=== PATIENT | female | born 1970 | race American Indian/Alaskan Native ===

== ENCOUNTER 2017-06-01 03:36 | Emergency (ER) | payer MEDICARE ==
[2017-06-01] MEDS ORDERED: TYLENOL ONE (03:57)
[2017-06-01] MEDS ORDERED: TYLENOL PO ONE (04:40)
[2017-06-01] MEDS ORDERED: MOTRIN PO ONE (09:26)
[2017-06-01 11:16] VITALS: BP 106/66
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
[2017-06-01 12:39] LABS: Basophils % (Auto) 0.4 % (0.0-1.8); Hematocrit 34.3 % (30.3-42.9); Hemoglobin 11.4 gm/dl (10.1-14.3); Mean Corpuscular HGB Conc 33 % (30-34); Mean Corpuscular Hemoglobin 31 pg (28-32); Mean Corpuscular Volume 94 fl (79-97); Platelet Count 305 K/mm3 (140-440); Red Blood Count 3.64 M/mm3 (3.65-5.03); Red Cell Distribution Width 13.5 % (13.2-15.2); White Blood Count 11.2 K/mm3 (4.5-11.0)
[2017-06-01 12:50] LABS: Anion Gap 13 mmol/L; BUN/Creatinine Ratio 23.33; Blood Urea Nitrogen 7 mg/dL (7-17); Calcium 8.8 mg/dL (8.4-10.2); Carbon Dioxide 35 mmol/L (22-30); Chloride 94.2 mmol/L (98-107); Glucose 94 mg/dL (65-100); Sodium 138 mmol/L (137-145)
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
== END 2017-06-01 14:33 | disposition home or self-care (01) ==
LOC: ED 03:36
DX: S13.4XXA Sprain of ligaments of cervical spine, initial encounter (principal); S16.1XXA Strain of muscle, fascia and tendon at neck level, initial encounter; Y04.8XXA Assault by other bodily force, initial encounter; Y93.89 Activity, other specified; Y99.8 Other external cause status; Y92.009 Unspecified place in unspecified non-institutional (private) residence as the place of occurrence of the external cause
CPT/HCPCS: 36415; 72125; 80048; 85025; 86140

== ENCOUNTER 2017-06-03 08:06 | Emergency (ER) | payer MEDICARE ==
[2017-06-03 08:28] VITALS: BP 127/63
[2017-06-03] MEDS ORDERED: TORADOL PO ONE (10:30)
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
== END 2017-06-03 11:05 | disposition home or self-care (01) ==
LOC: ED 08:06
DX: S16.1XXA Strain of muscle, fascia and tendon at neck level, initial encounter (principal); M62.838 Other muscle spasm; X58.XXXA Exposure to other specified factors, initial encounter; Y93.9 Activity, unspecified; Y92.9 Unspecified place or not applicable; Y99.9 Unspecified external cause status
CPT/HCPCS: 99282

== ENCOUNTER 2017-06-17 08:02 | Emergency (ER) | payer MEDICARE ==
[2017-06-17] MEDS ORDERED: MOTRIN PO ONE (08:52)
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
[2017-06-17 10:17] VITALS: BP 100/60
== END 2017-06-17 10:11 | disposition home or self-care (01) ==
LOC: ED 08:02
DX: S16.1XXD Strain of muscle, fascia and tendon at neck level, subsequent encounter (principal); M54.12 Radiculopathy, cervical region; F20.9 Schizophrenia, unspecified; Z87.891 Personal history of nicotine dependence
CPT/HCPCS: 99282

== ENCOUNTER 2017-06-24 10:51 | Emergency (ER) | payer MEDICARE ==
[2017-06-24 11:35] VITALS: BP 118/66
--- NOTE | 2017-06-24 13:09 | Emergency Department Report ---
ED Neck Pain/Injury HPI - General Chief Complaint: Extremity Problem,Nontraumatic Stated Complaint: NECK/SHOULDER PAIN Time Seen by Provider: 06/24/17 12:56 Mode of arrival: Ambulatory Limitations: No Limitations - History of Present Illness Initial Comments: 47-year-old female past medical history cervical radiculopathy, schizophrenia presents with complaint of acute on chronic right-sided neck pain radiating to shoulder. Denies any new trauma is awake alert and oriented 3 states that she has had intermittent pain in the right shoulder for about 2-3 days. States she lifted something heavy and strained her right shoulder. Denies any falls no direct trauma. Patient is adamant that Motrin and Robaxin help significantly with her pain as they have in the past and is requesting prescriptions for both. States she does not currently have a primary doctor. Onset/Timin -: days(s) Radiation: right shoulder Severity: moderate Severity scale (0 -10): 7 Quality: sharp Consistency: constant - Related Data Previous Rx's Medication Instructions Recorded Last Taken Type Ibuprofen [Motrin] 600 mg PO Q8H PRN #15 tablet 06/17/17 Unknown Rx methOCARBAMOL [Robaxin TAB] 500 mg PO Q6H PRN #15 tablet 06/17/17 Unknown Rx Ibuprofen [Motrin] 800 mg PO Q8HR PRN #25 tablet 06/24/17 Unknown Rx methOCARBAMOL [Robaxin TAB] 500 mg PO Q6H PRN #15 tablet 06/24/17 Unknown Rx Allergies Allergy/AdvReac Type Severity Reaction Status Date / Time No Known Allergies Allergy Verified 06/24/17 11:35 ED Review of Systems ROS: Stated complaint: NECK/SHOULDER PAIN Other details as noted in HPI Constitutional: denies: chills, fever Eyes: denies: eye pain, eye discharge, vision change ENT: denies: ear pain, throat pain Respiratory: denies: cough, shortness of breath, wheezing Cardiovascular: denies: chest pain, palpitations Endocrine: no symptoms reported Gastrointestinal: denies: abdominal pain, nausea, diarrhea Genitourinary: denies: urgency, dysuria, discharge Musculoskeletal: denies: back pain, joint swelling, arthralgia Skin: denies: rash, lesions Neurological: denies: headache, weakness, paresthesias Psychiatric: denies: anxiety, depression Hematological/Lymphatic: denies: easy bleeding, easy bruising ED Past Medical Hx - Past Medical History Previous Medical History?: Yes Hx Psychiatric Treatment: Yes (schizophrenia) - Surgical History Past Surgical History?: Yes Hx Cholecystectomy: Yes - Social History Smoking Status: Former Smoker Substance Use Type: None - Medications Home Medications: Home Medications Medication Instructions Recorded Confirmed Last Taken Type Ibuprofen [Motrin] 600 mg PO Q8H PRN #15 tablet 06/17/17 Unknown Rx methOCARBAMOL [Robaxin TAB] 500 mg PO Q6H PRN #15 tablet 06/17/17 Unknown Rx Ibuprofen [Motrin] 800 mg PO Q8HR PRN #25 tablet 06/24/17 Unknown Rx methOCARBAMOL [Robaxin TAB] 500 mg PO Q6H PRN #15 tablet 06/24/17 Unknown Rx ED Physical Exam - General Limitations: No Limitations General appearance: alert, in no apparent distress - Head Head exam: Present: atraumatic, normocephalic - Eye Eye exam: Present: normal appearance, PERRL, EOMI - ENT ENT exam: Present: mucous membranes moist - Neck Neck exam: Present: normal inspection, full ROM (neck flexion and extension intact) - Respiratory Respiratory exam: Present: normal lung sounds bilaterally. Absent: respiratory distress - Cardiovascular Cardiovascular Exam: Present: regular rate, normal rhythm. Absent: systolic murmur, diastolic murmur, rubs, gallop - GI/Abdominal GI/Abdominal exam: Present: soft, normal bowel sounds - Extremities Exam Extremities exam: Present: normal inspection - Expanded Upper Extremity Exam Right Shoulder Exam: Present: normal inspection, full ROM (shoulder internal and external rotation intact abduction and abduction intact) Upper Arm exam: Present: normal inspection, full ROM Elbow exam: Present: normal inspection, full ROM - Back Exam Back exam: Present: normal inspection - Neurological Exam Neurological exam: Present: alert, oriented X3 - Psychiatric Psychiatric exam: Present: normal affect, normal mood - Skin Skin exam: Present: warm, dry, intact, normal color. Absent: rash ED Course Vital Signs 06/24/17 11:29 Temperature 98.9 F Pulse Rate 89 Respiratory 16 Rate Blood Pressure 118/66 O2 Sat by Pulse 97 Oximetry ED Medical Decision Making - Medical Decision Making A/P: Chronic right shoulder pain, cervical radiculopathy 1-short course of Robaxin and Motrin, follow up with primary care and orthopedics 2-5 out of 5 strength right upper extremity, shoulder range of motion intact, right upper shoulder many neurovascularly intact on exam Critical care attestation.: If time is entered above; I have spent that time in minutes in the direct care of this critically ill patient, excluding procedure time. ED Disposition Clinical Impression: Chronic neck pain Disposition: TO HOME OR SELFCARE Is pt being admited?: No Does the pt Need Aspirin: No Condition: Stable Instructions: Cervical Radiculopathy (ED), Musculoskeletal Pain (ED) Prescriptions: Ibuprofen [Motrin] 800 mg PO Q8HR PRN #25 tablet PRN Reason: Pain methOCARBAMOL [Robaxin TAB] 500 mg PO Q6H PRN #15 tablet PRN Reason: Muscle Spasm Referrals: [facility] [Provider Group] - 3-5 Days [facility] [Outside] - 3-5 Days MARLYN CHAUDHARI MD [Staff Physician] - 3-5 Days [facility] [Provider Group] - 3-5 Days Forms: Work/School Release Form(ED) Time of Disposition: 13:04
== END 2017-06-24 13:15 | disposition home or self-care (01) ==
LOC: ED 10:51
DX: M54.2 Cervicalgia (principal); F20.9 Schizophrenia, unspecified; G89.29 Other chronic pain; Z87.891 Personal history of nicotine dependence
CPT/HCPCS: 99282

== ENCOUNTER 2017-07-07 10:45 | Emergency (ER) | payer MEDICARE ==
[2017-07-07 11:33] VITALS: BP 98/58
[2017-07-07] MEDS ORDERED: MOTRIN PO ONE (12:09)
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
== END 2017-07-07 12:40 | disposition home or self-care (01) ==
LOC: ED 10:45
DX: M50.30 Other cervical disc degeneration, unspecified cervical region (principal); F20.9 Schizophrenia, unspecified; F32.9 Major depressive disorder, single episode, unspecified; G89.29 Other chronic pain; Z87.891 Personal history of nicotine dependence
CPT/HCPCS: 99282

== ENCOUNTER 2018-02-22 03:29 | Emergency (ER) | payer MEDICARE ==
[2018-02-22 04:52] LABS: Basophils % (Auto) 0.4 % (0.0-1.8); Eosinophils # (Auto) 0.5 K/mm3 (0.0-0.4); Eosinophils % (Auto) 5.6 % (0.0-4.3); Hematocrit 40.8 % (30.3-42.9); Hemoglobin 13.9 gm/dl (10.1-14.3); Lymphocytes # (Auto) 3.2 K/mm3 (1.2-5.4); Lymphocytes % (Auto) 39.2 % (13.4-35.0); Mean Corpuscular HGB Conc 34 % (30-34); Mean Corpuscular Hemoglobin 32 pg (28-32); Mean Corpuscular Volume 94 fl (79-97); Monocytes # (Auto) 0.5 K/mm3 (0.0-0.8); Monocytes % (Auto) 6.5 % (0.0-7.3); Platelet Count 264 K/mm3 (140-440); Red Blood Count 4.33 M/mm3 (3.65-5.03); Red Cell Distribution Width 14.3 % (13.2-15.2)
[2018-02-22 05:42] LABS: Alanine Aminotransferase 12 units/L (7-56); Albumin 4.2 g/dL (3.9-5); BUN/Creatinine Ratio 25; Blood Urea Nitrogen 15 mg/dL (7-17); Calcium 9.1 mg/dL (8.4-10.2); Hemolysis Index 20
[2018-02-22 07:10] LABS: Bilirubin,Urine NEG (Negative); Blood,Urine NEG (Negative); Color,Urine Straw (Yellow); Protein,Urine <15 mg/dL mg/dL (Negative); RBC,Urine < 1.0 /HPF (0.0-6.0); Urobilinogen,Urine < 2.0 mg/dL (<2.0)
[2018-02-22 08:11] VITALS: BP 111/65
[2018-02-22 09:22] LABS: HCG Qualitative,Urine Negative (Negative)
--- NOTE | 2018-02-22 09:56 | Cat Scan Report ---
CT ABDOMEN PELVIS WITHOUT CONTRAST: HISTORY: Right abdominal pain, right flank pain. COMPARISON: none. TECHNIQUE: Helical CT in 1.25mm intervals without IV contrast. Sagittal and coronal reconstructions. FINDINGS: Lung bases: Normal. Liver: Normal size and attenuation. 1.8 cm right hepatic lobe cyst or hemangioma is noted. Biliary system: Cholecystectomy changes. No biliary dilatation. Pancreas: Normal. Spleen: Normal. Kidneys/ureters/bladder: Normal. Adrenal glands: Normal. Aorta: Normal. Intestines: Unremarkable given no oral contrast was administered.. Appendix: Normal. Pelvic viscera: Normal. Ascites: None. Adenopathy: None. Musculoskeletal: Mild thoracolumbar spondylosis. No evidence for fracture or suspicious bony lesion. Small umbilical hernia containing fat is noted. IMPRESSION: No acute process is identified in the abdomen or pelvis. No clear explanation for right abdominal or right flank pain. 1.8 cm liver cyst or hemangioma. Small umbilical hernia containing fat. Cholecystectomy.
--- NOTE | 2018-02-22 10:30 | Emergency Department Report ---
ED Abdominal Pain HPI - General Chief Complaint: Abdominal Pain Stated Complaint: RT FLANK PAIN Time Seen by Provider: 02/22/18 09:04 Source: patient Mode of arrival: Ambulatory Limitations: No Limitations - History of Present Illness Initial Comments: 48-year-old female with a past medical history schizophrenia, depression, previous cholecystectomy, and chronic neck pain consistent with complaints of right-sided abdominal and flank pain ongoing since August for worsening for the past one week. Patient is pain-free at this time stated she hasn't had pain in the last 4 hours. Usually pain is rated 7/10 intensity without exiting relieving factors. Denies nausea, vomiting, fever, hematuria, dysuria, melena, hematochezia. Severity scale (0 -10): 10 - Related Data Previous Rx's Medication Instructions Recorded Last Taken Type methOCARBAMOL [Robaxin TAB] 500 mg PO Q6H PRN #15 tablet 06/17/17 Unknown Rx Ibuprofen [Motrin] 800 mg PO Q8HR PRN #25 tablet 06/24/17 Unknown Rx methOCARBAMOL [Robaxin TAB] 500 mg PO Q6H PRN #15 tablet 06/24/17 Unknown Rx Cyclobenzaprine [Flexeril] 10 mg PO TID PRN #15 tablet 07/07/17 Unknown Rx Ibuprofen [Motrin 600 MG tab] 600 mg PO Q8H PRN #15 tablet 07/07/17 Unknown Rx Allergies Allergy/AdvReac Type Severity Reaction Status Date / Time No Known Allergies Allergy Verified 07/07/17 11:33 ED Review of Systems ROS: Stated complaint: RT FLANK PAIN Other details as noted in HPI Comment: All other systems reviewed and negative ED Past Medical Hx - Past Medical History Previous Medical History?: Yes Hx Psychiatric Treatment: Yes (schizophrenia , DEPRESSION) Additional medical history: chronic neck pain - Surgical History Past Surgical History?: Yes Hx Cholecystectomy: Yes Additional Surgical History: Chronic Neck Pain - Social History Smoking Status: Never Smoker Substance Use Type: None - Medications Home Medications: Home Medications Medication Instructions Recorded Confirmed Last Taken Type methOCARBAMOL [Robaxin TAB] 500 mg PO Q6H PRN #15 tablet 06/17/17 Unknown Rx Ibuprofen [Motrin] 800 mg PO Q8HR PRN #25 tablet 06/24/17 Unknown Rx methOCARBAMOL [Robaxin TAB] 500 mg PO Q6H PRN #15 tablet 06/24/17 Unknown Rx Cyclobenzaprine [Flexeril] 10 mg PO TID PRN #15 tablet 07/07/17 Unknown Rx Ibuprofen [Motrin 600 MG tab] 600 mg PO Q8H PRN #15 tablet 07/07/17 Unknown Rx ED Physical Exam - General Limitations: No Limitations - Other Other exam information: General: No limitations, patient is alert in no acute distress Head exam: Atraumatic, normocephalic Eyes exam: Normal appearance, pupils equal reactive to light, extraocular movements intact ENT: Moist mucous membrane, normal oropharynx Neck exam: Normal inspection, full range of motion, no meningismus nontender Respiratory exam: Clear to auscultation bilateral, no wheezes, rales, crackles Cardiovascular: Normal rate and rhythm, normal heart sounds Abdomen: Soft, nondistended, and nontender, with normal bowel sounds, no rebound, or guarding Extremity: Full range of motion normal inspection no deformity Back: Normal Inspection, full range of motion, no tenderness Neurologic: Alert, oriented x3, cranial nerves intact, no motor or sensory deficit Psychiatric: normal affect, normal mood Skin: Warm, dry, intact ED Course Vital Signs 02/22/18 02/22/18 02/22/18 03:57 07:51 08:10 Temperature 97.7 F 98.4 F 98.3 F Pulse Rate 80 104 H Respiratory 18 18 Rate Blood Pressure 124/76 121/62 Blood Pressure 111/65 [Left] O2 Sat by Pulse 95 97 Oximetry - Reevaluation(s) Reevaluation #1: 02/22/18 11:21 Patient tolerating by mouth intake and did not require pain medication in the ED ED Medical Decision Making - Lab Data Result diagrams: 02/22/18 04:11 02/22/18 04:11 Lab Results 02/22/18 02/22/18 02/22/18 Range/Units 04:11 04:11 06:46 WBC 8.3 (4.5-11.0) K/mm3 RBC 4.33 (3.65-5.03) M/mm3 Hgb 13.9 (10.1-14.3) gm/dl Hct 40.8 (30.3-42.9) % MCV 94 (79-97) fl MCH 32 (28-32) pg MCHC 34 (30-34) % RDW 14.3 (13.2-15.2) % Plt Count 264 (140-440) K/mm3 Lymph % (Auto) 39.2 H (13.4-35.0) % Cross % (Auto) 6.5 (0.0-7.3) % Eos % (Auto) 5.6 H (0.0-4.3) % Baso % (Auto) 0.4 (0.0-1.8) % Lymph # 3.2 (1.2-5.4) K/mm3 Cross # 0.5 (0.0-0.8) K/mm3 Eos # 0.5 H (0.0-0.4) K/mm3 Baso # 0.0 (0.0-0.1) K/mm3 Seg Neutrophils % 48.3 (40.0-70.0) % Seg Neutrophils # 4.0 (1.8-7.7) K/mm3 Sodium 140 (137-145) mmol/L Potassium 4.5 (3.6-5.0) mmol/L Chloride 94.9 L (98-107) mmol/L Carbon Dioxide 32 H (22-30) mmol/L Anion Gap 18 mmol/L BUN 15 (7-17) mg/dL Creatinine 0.6 L (0.7-1.2) mg/dL Estimated GFR > 60 ml/min BUN/Creatinine Ratio 25 % Glucose 120 H (65-100) mg/dL Calcium 9.1 (8.4-10.2) mg/dL Total Bilirubin 0.20 (0.1-1.2) mg/dL AST 17 (5-40) units/L ALT 12 (7-56) units/L Alkaline Phosphatase 56 (35-129) units/L Total Protein 7.1 (6.3-8.2) g/dL Albumin 4.2 (3.9-5) g/dL Albumin/Globulin Ratio 1.4 % Urine Color Straw (Yellow) Urine Turbidity Clear (Clear) Urine pH 6.0 (5.0-7.0) Ur Specific [place] 1.004 (1.003-1.030) Urine Protein <15 mg/dl (Negative) mg/dL Urine Glucose (UA) Neg (Negative) mg/dL Urine Ketones Neg (Negative) mg/dL Urine Blood Neg (Negative) Urine Nitrite Neg (Negative) Urine Bilirubin Neg (Negative) Urine Urobilinogen < 2.0 (<2.0) mg/dL Ur Leukocyte Esterase Neg (Negative) Urine WBC (Auto) 1.0 (0.0-6.0) /HPF Urine RBC (Auto) < 1.0 (0.0-6.0) /HPF Urine HCG, Qual (Negative) 02/22/18 Range/Units 06:49 WBC (4.5-11.0) K/mm3 RBC (3.65-5.03) M/mm3 Hgb (10.1-14.3) gm/dl Hct (30.3-42.9) % MCV (79-97) fl MCH (28-32) pg MCHC (30-34) % RDW (13.2-15.2) % Plt Count (140-440) K/mm3 Lymph % (Auto) (13.4-35.0) % Cross % (Auto) (0.0-7.3) % Eos % (Auto) (0.0-4.3) % Baso % (Auto) (0.0-1.8) % Lymph # (1.2-5.4) K/mm3 Cross # (0.0-0.8) K/mm3 Eos # (0.0-0.4) K/mm3 Baso # (0.0-0.1) K/mm3 Seg Neutrophils % (40.0-70.0) % Seg Neutrophils # (1.8-7.7) K/mm3 Sodium (137-145) mmol/L Potassium (3.6-5.0) mmol/L Chloride (98-107) mmol/L Carbon Dioxide (22-30) mmol/L Anion Gap mmol/L BUN (7-17) mg/dL Creatinine (0.7-1.2) mg/dL Estimated GFR ml/min BUN/Creatinine Ratio % Glucose (65-100) mg/dL Calcium (8.4-10.2) mg/dL Total Bilirubin (0.1-1.2) mg/dL AST (5-40) units/L ALT (7-56) units/L Alkaline Phosphatase (35-129) units/L Total Protein (6.3-8.2) g/dL Albumin (3.9-5) g/dL Albumin/Globulin Ratio % Urine Color (Yellow) Urine Turbidity (Clear) Urine pH (5.0-7.0) Ur Specific Tas[place] (1.003-1.030) Urine Protein (Negative) mg/dL Urine Glucose (UA) (Negative) mg/dL Urine Ketones (Negative) mg/dL Urine Blood (Negative) Urine Nitrite (Negative) Urine Bilirubin (Negative) Urine Urobilinogen (<2.0) mg/dL Ur Leukocyte Esterase (Negative) Urine WBC (Auto) (0.0-6.0) /HPF Urine RBC (Auto) (0.0-6.0) /HPF Urine HCG, Qual Negative (Negative) - Radiology Data Radiology results: report reviewed ct a/p noncontrast IMPRESSION: No acute process is identified in the abdomen or pelvis. No clear explanation for right abdominal or right flank pain. 1.8 cm liver cyst or hemangioma. Small umbilical hernia containing fat. Cholecystectomy. - Medical Decision Making Ongoing right-sided abdominal pain. No acute laboratory, urine, or CT findings. Discharged to follow up with PMD - Differential Diagnosis appendicitis, diverticulitis, UTI, renal colic, MSK pain Critical Care Time: No Critical care attestation.: If time is entered above; I have spent that time in minutes in the direct care of this critically ill patient, excluding procedure time. ED Disposition Clinical Impression: Right sided abdominal pain Disposition: DC-01 TO HOME OR SELFCARE Is pt being admited?: No Does the pt Need Aspirin: No Condition: Stable Instructions: Abdominal Pain (ED) Additional Instructions: Take Tylenol or Motrin as needed for pain. Follow-up with your doctor. Return if symptoms worsen as indicated by your discharge instructions. Referrals: MICHOACANO BARRON MD [Primary Care Provider] - 3-5 Days Time of Disposition: 11:21
== END 2018-02-22 11:54 | disposition home or self-care (01) ==
LOC: ED 03:29
DX: R10.30 Lower abdominal pain, unspecified (principal); F20.9 Schizophrenia, unspecified
CPT/HCPCS: 36415; 74176; 80053; 81001; 81025; 85025

== ENCOUNTER 2019-10-22 11:55 | Emergency (ER) | payer MEDICARE ==
--- NOTE | 2019-10-22 12:41 | Event Note ---
ED Screening Note Date of service: 10/22/19 Time: 12:37 ED Screening Note: 49 y o female presents to ED not all there stating she is here for a vaginal and anal implant when asked patient when asked her hx she states she takes : depakote, Giodon, fluoxetine doesnt want to state what she is taking it for. states she has all the time in the world, talking in circles getting upset in traige stating she needs help This initial assessment/diagnostic orders/clinical plan/treatment(s) is/are subj ect to change based on patients health status, clinical progression and re- assessment by fellow clinical providers in the ED. Further treatment and workup at subsequent clinical providers discretion. Patient/guardian urged not to elope from the ED as their condition may be serious if not clinically assessed and managed. Initial orders include: MH eval labs, ua main eval
[2019-10-22 13:22] LABS: Amphetamine Screen,Urine PRESUMPTIVE NEGATIVE; Benzodiazepines Screen,Urine PRESUMPTIVE NEGATIVE; Cannabinoid Screen,Urine PRESUMPTIVE NEGATIVE; Cocaine Screen,Urine PRESUMPTIVE NEGATIVE; Methadone Screen,Urine PRESUMPTIVE NEGATIVE; Opiate Screen,Urine PRESUMPTIVE NEGATIVE
[2019-10-22 13:23] LABS: Bilirubin,Urine NEG (Negative); Blood,Urine LG (Negative); Color,Urine Yellow (Yellow); Mucus,Urine FEW /HPF; Protein,Urine <15 mg/dL mg/dL (Negative)
[2019-10-22 13:26] LABS: HCG Qualitative,Urine Negative (Negative)
[2019-10-22 13:41] LABS: RBC,Urine > 182.0 /HPF (0.0-6.0)
[2019-10-22 14:02] LABS: Basophils # (Auto) 0.1 K/mm3 (0.0-0.1); Basophils % (Auto) 0.7 % (0.0-1.8); Eosinophils # (Auto) 0.2 K/mm3 (0.0-0.4); Eosinophils % (Auto) 2.7 % (0.0-4.3); Hematocrit 39.6 % (30.3-42.9); Hemoglobin 13.3 gm/dl (10.1-14.3); Lymphocytes # (Auto) 2.8 K/mm3 (1.2-5.4); Lymphocytes % (Auto) 35.7 % (13.4-35.0); Mean Corpuscular HGB Conc 34 % (30-34); Mean Corpuscular Volume 94 fl (79-97); Monocytes # (Auto) 0.6 K/mm3 (0.0-0.8); Monocytes % (Auto) 8.3 % (0.0-7.3); Platelet Count 207 K/mm3 (140-440); Red Blood Count 4.23 M/mm3 (3.65-5.03); Red Cell Distribution Width 13.7 % (13.2-15.2)
[2019-10-22 14:22] LABS: BUN/Creatinine Ratio 13; Blood Urea Nitrogen 10 mg/dL (7-17); Calcium 9.2 mg/dL (8.4-10.2); Hemolysis Index 16
[2019-10-22 18:34] VITALS: BP 115/72
--- NOTE | 2019-10-22 22:20 | Emergency Department Report ---
ED General Adult HPI - General Chief complaint: Psych Stated complaint: UROGENITAL Time Seen by Provider: 10/22/19 22:08 Source: patient Mode of arrival: Ambulatory Limitations: No Limitations - History of Present Illness Initial comments: 49-year-old female with a history of schizophrenia presents with the complaint that she wants a anal and vaginal implant. Patient states that she is a desire to have a anal and vaginal implant most presented to the nearest hospital. Patient denies any auditory hallucinations. Patient has no suicidal or homicidal ideation. Patient states that she has a psychiatrist to follow with her states that she is compliant with her medications. Patient denies any abdominal pain or vaginal bleeding current time. Patient denies any rectal bleeding. Severity scale (0 -10): 0 - Related Data Previous Rx's Medication Instructions Recorded Last Taken Type methOCARBAMOL [Robaxin TAB] 500 mg PO Q6H PRN #15 tablet 06/17/17 Unknown Rx Ibuprofen [Motrin] 800 mg PO Q8HR PRN #25 tablet 06/24/17 Unknown Rx methOCARBAMOL [Robaxin TAB] 500 mg PO Q6H PRN #15 tablet 06/24/17 Unknown Rx Cyclobenzaprine [Flexeril] 10 mg PO TID PRN #15 tablet 07/07/17 Unknown Rx Ibuprofen [Motrin 600 MG tab] 600 mg PO Q8H PRN #15 tablet 07/07/17 Unknown Rx Allergies Allergy/AdvReac Type Severity Reaction Status Date / Time No Known Allergies Allergy Verified 10/22/19 12:35 ED Review of Systems ROS: Stated complaint: UROGENITAL Other details as noted in HPI Constitutional: denies: chills, fever Eyes: denies: eye pain, eye discharge, vision change ENT: denies: ear pain, throat pain Respiratory: denies: cough, shortness of breath, wheezing Cardiovascular: denies: chest pain, palpitations Endocrine: no symptoms reported Gastrointestinal: denies: abdominal pain, nausea, diarrhea Genitourinary: denies: urgency, dysuria, discharge Musculoskeletal: denies: back pain, joint swelling, arthralgia Skin: denies: rash, lesions Neurological: denies: headache, weakness, paresthesias Psychiatric: other (delusions) Hematological/Lymphatic: denies: easy bleeding, easy bruising ED Past Medical Hx - Past Medical History Previous Medical History?: Yes Hx Psychiatric Treatment: Yes (schizophrenia , DEPRESSION) Additional medical history: chronic neck pain - Surgical History Past Surgical History?: Yes Hx Cholecystectomy: Yes Additional Surgical History: Chronic Neck Pain - Social History Smoking Status: Never Smoker - Medications Home Medications: Home Medications Medication Instructions Recorded Confirmed Last Taken Type methOCARBAMOL [Robaxin TAB] 500 mg PO Q6H PRN #15 tablet 06/17/17 Unknown Rx Ibuprofen [Motrin] 800 mg PO Q8HR PRN #25 tablet 06/24/17 Unknown Rx methOCARBAMOL [Robaxin TAB] 500 mg PO Q6H PRN #15 tablet 06/24/17 Unknown Rx Cyclobenzaprine [Flexeril] 10 mg PO TID PRN #15 tablet 07/07/17 Unknown Rx Ibuprofen [Motrin 600 MG tab] 600 mg PO Q8H PRN #15 tablet 07/07/17 Unknown Rx ED Physical Exam - General Limitations: No Limitations General appearance: alert, in no apparent distress - Head Head exam: Present: atraumatic, normocephalic - Eye Eye exam: Present: normal appearance - ENT ENT exam: Present: mucous membranes moist - Neck Neck exam: Present: normal inspection - Respiratory Respiratory exam: Present: normal lung sounds bilaterally. Absent: respiratory distress - Cardiovascular Cardiovascular Exam: Present: regular rate, normal rhythm. Absent: systolic murmur, diastolic murmur, rubs, gallop - GI/Abdominal GI/Abdominal exam: Present: soft, normal bowel sounds - Extremities Exam Extremities exam: Present: normal inspection - Back Exam Back exam: Present: normal inspection - Neurological Exam Neurological exam: Present: alert, oriented X3, CN II-XII intact. Absent: motor sensory deficit, reflexes normal - Psychiatric Psychiatric exam: Absent: homicidal ideation, suicidal ideation - Skin Skin exam: Present: warm, dry, intact, normal color. Absent: rash ED Course Vital Signs 10/22/19 10/22/19 12:35 18:33 Temperature 98.5 F Pulse Rate 67 58 L Respiratory 20 16 Rate Blood Pressure 109/55 115/72 [Right] O2 Sat by Pulse 96 100 Oximetry ED Medical Decision Making - Lab Data Result diagrams: 10/22/19 13:37 10/22/19 13:37 - Medical Decision Making Patient has no SI or HI or auditory hallucinations. Patient be discharged to follow up with psychiatry as an outpatient. - Differential Diagnosis acute psychosis; Polysubstance abuse; anemia; dehydration Critical care attestation.: If time is entered above; I have spent that time in minutes in the direct care of this critically ill patient, excluding procedure time. ED Disposition Clinical Impression: Schizophrenia Disposition: DC-01 TO HOME OR SELFCARE Is pt being admited?: No Does the pt Need Aspirin: No Condition: Stable Instructions: Schizophrenia (ED) Referrals: OLAMIDE GREGORY MD [Staff Physician] - 3-5 Days PRIMARY CARE, [Primary Care Provider] - 3-5 Days Time of Disposition: 22:52 Print Language: SINHALA
== END 2019-10-23 00:20 | disposition home or self-care (01) ==
LOC: ED 11:55
DX: F20.9 Schizophrenia, unspecified (principal); F32.9 Major depressive disorder, single episode, unspecified; Z90.49 Acquired absence of other specified parts of digestive tract; Z79.899 Other long term (current) drug therapy
CPT/HCPCS: 36415; 80048; 80307; 80320; 81001; 81025; 85025; G0480

== ENCOUNTER 2020-03-30 00:32 | Observation (INO) | payer MEDICARE ==
[2020-03-30] MEDS ORDERED: ASPIRIN 325 MG TAB PO ONE (01:12)
[2020-03-30 01:37] LABS: Basophils # (Auto) 0.1 K/mm3 (0.0-0.1); Basophils % (Auto) 0.8 % (0.0-1.8); Eosinophils # (Auto) 0.2 K/mm3 (0.0-0.4); Eosinophils % (Auto) 2.4 % (0.0-4.3); Hematocrit 39.8 % (30.3-42.9); Hemoglobin 13.6 gm/dl (10.1-14.3); Lymphocytes % (Auto) 45.6 % (13.4-35.0); Mean Corpuscular HGB Conc 34 % (30-34); Mean Corpuscular Volume 93 fl (79-97); Monocytes # (Auto) 0.6 K/mm3 (0.0-0.8); Monocytes % (Auto) 7.3 % (0.0-7.3); Platelet Count 209 K/mm3 (140-440); Red Blood Count 4.27 M/mm3 (3.65-5.03); Red Cell Distribution Width 13.5 % (13.2-15.2)
[2020-03-30 01:49] LABS: BUN/Creatinine Ratio 18; Blood Urea Nitrogen 11 mg/dL (7-17); Calcium 9.4 mg/dL (8.4-10.2); Hemolysis Index 18
--- NOTE | 2020-03-30 02:28 | XRay Report ---
CHEST 1 VIEW, 03/30/2020 2:14 AM CLINICAL INFORMATION/INDICATION: Chest pain COMPARISON: None FINDINGS: SUPPORT DEVICES: None. HEART: The cardiac silhouette is normal in size. LUNGS/PLEURA: The lungs are clear of focal airspace disease or significant pleural effusion. ADDITIONAL FINDINGS: No additional acute findings. IMPRESSION: 1. No evidence of acute cardiopulmonary process. Signer Name: Lalitha Mckeon MD Signed: 03/30/2020 2:23 AM Workstation Name: [email or web address]
[2020-03-30] MEDS ORDERED: NITROGLYCERIN 2% OINT 1 GM TP ONE (02:30)
[2020-03-30] MEDS ORDERED: ONDANSETRON 4 MG/2 ML INJ IV ONE (02:30)
[2020-03-30] MEDS ORDERED: fentaNYL 100 MCG/2 ML INJ IV ONE (02:30)
--- NOTE | 2020-03-30 02:30 | Emergency Department Report ---
HPI - General Chief Complaint: Chest Pain PUI?: No Time Seen by Provider: 03/30/20 02:21 - HPI HPI: Room 38 The patient is a 50-year-old female present with a chief complaint of chest pain. Patient states for the past 3 hours she has had intermittent substernal chest pressure and back pain. Patient gives her pain a score of 3/10. Patient denies shortness of breath, nausea/vomiting or diaphoresis with her pain. Patient states she is never had a stress test or cardiac catheterization. ED Past Medical Hx - Past Medical History Previous Medical History?: Yes Hx Psychiatric Treatment: Yes (schizophrenia , DEPRESSION) Additional medical history: chronic neck pain - Surgical History Past Surgical History?: Yes Hx Cholecystectomy: Yes Additional Surgical History: Chronic Neck Pain - Family History Family history: no significant - Social History Smoking Status: Former Smoker (None since 2018) Substance Use Type: None (Denies illicit drug use) - Medications Home Medications: Home Medications Medication Instructions Recorded Confirmed Last Taken Type methOCARBAMOL [Robaxin TAB] 500 mg PO Q6H PRN #15 tablet 06/17/17 Unknown Rx Ibuprofen [Motrin] 800 mg PO Q8HR PRN #25 tablet 06/24/17 Unknown Rx methOCARBAMOL [Robaxin TAB] 500 mg PO Q6H PRN #15 tablet 06/24/17 Unknown Rx Cyclobenzaprine [Flexeril] 10 mg PO TID PRN #15 tablet 07/07/17 Unknown Rx Ibuprofen [Motrin 600 MG tab] 600 mg PO Q8H PRN #15 tablet 07/07/17 Unknown Rx ED Review of Systems ROS: Stated complaint: CP/NECK AND BACK PAIN Other details as noted in HPI Constitutional: denies: diaphoresis Eyes: denies: eye pain ENT: denies: throat pain Respiratory: denies: shortness of breath Cardiovascular: chest pain Endocrine: no symptoms reported Gastrointestinal: denies: nausea, vomiting Genitourinary: denies: dysuria Musculoskeletal: denies: back pain Neurological: denies: headache Physical Exam - Physical Exam Vital Signs: Vital Signs 03/30/20 01:02 Temperature 99.1 F Pulse Rate 58 L Respiratory 18 Rate Blood Pressure 114/56 O2 Sat by Pulse 98 Oximetry Physical Exam: GENERAL: The patient is well-developed well-nourished female lying on stretcher not appearing to be in acute distress. [] HEENT: Normocephalic. Atraumatic. Extraocular motions are intact. Patient has moist mucous membranes. NECK: Supple. Trachea midline CHEST/LUNGS: Clear to auscultation. There is no respiratory distress noted. HEART/CARDIOVASCULAR: Regular. There is no tachycardia. There is no gallop rub or murmur. ABDOMEN: Abdomen is soft, nontender. Patient has normal bowel sounds. There is no abdominal distention. SKIN: There is no rash. There is no edema. There is no diaphoresis. NEURO: The patient is awake, alert, and oriented. The patient is cooperative. The patient has normal speech MUSCULOSKELETAL: There is no evidence of acute injury. ED Course Vital Signs 03/30/20 01:02 Temperature 99.1 F Pulse Rate 58 L Respiratory 18 Rate Blood Pressure 114/56 O2 Sat by Pulse 98 Oximetry ED Medical Decision Making - Lab Data Result diagrams: 03/30/20 01:21 03/30/20 01:21 Laboratory Tests 03/30/20 03/30/20 03/30/20 01:21 01:21 01:21 WBC 8.7 RBC 4.27 Hgb 13.6 Hct 39.8 MCV 93 MCH 32 MCHC 34 RDW 13.5 Plt Count 209 Lymph % (Auto) 45.6 H Banks % (Auto) 7.3 Eos % (Auto) 2.4 Baso % (Auto) 0.8 Lymph # 4.0 Banks # 0.6 Eos # 0.2 Baso # 0.1 Seg Neutrophils % 43.9 Seg Neutrophils # 3.8 Sodium 141 Potassium 3.7 Chloride 98.1 Carbon Dioxide 31 H Anion Gap 16 BUN 11 Creatinine 0.6 L Estimated GFR > 60 BUN/Creatinine Ratio 18 Glucose 116 H Calcium 9.4 Troponin T < 0.010 HCG, Qual Negative - EKG Data -: EKG Interpreted by Me EKG shows normal: sinus rhythm Rate: normal - EKG Data When compared to previous EKG there are: previous EKG unavailable Interpretation: other (No ischemic changes seen) - Radiology Data Radiology results: image reviewed (Chest x-ray) interpreted by me: Chest x-ray-no focal infiltrates, no pneumothorax - Differential Diagnosis ACS, pericarditis, GERD Critical care attestation.: If time is entered above; I have spent that time in minutes in the direct care of this critically ill patient, excluding procedure time. ED Disposition Clinical Impression: Chest pain Disposition: DC-09 OP ADMIT IP TO THIS HOSP Is pt being admited?: Yes Does the pt Need Aspirin: Yes Condition: Fair Instructions: Chest Pain (ED) Referrals: PRIMARY CARE,MD [Primary Care Provider] - 3-5 Days Time of Disposition: 02:30 (Hospitalist paged (Dr. Josselyn Enrique))
[2020-03-30] MEDS ORDERED: ONDANSETRON 4 MG/2 ML INJ IV PRN (03:47)
[2020-03-30] MEDS ORDERED: ACETAMINOPHEN 325 MG TAB PO PRN (03:47)
[2020-03-30] MEDS ORDERED: MORPHINE 2 MG/1 ML INJ IV PRN (03:47)
--- NOTE | 2020-03-30 03:47 | History and Physical Report ---
History of Present Illness History of present illness: 50-year-old woman with a history of schizophrenia,depression chronic neck pain comes emergency room for evaluation. Pain is in the epigastric area which she describes as a sharp pain, intermittent every 3 minutes, intensity 5/10, no radiation, cannot identify exacerbating factors. Denies any nausea vomiting, shortness of breath, diaphoresis, palpitation. Patient will be admitted for est pain evaluation Review Of Systems: Constitutional: no weight loss, fever, chills Ears, eyes, nose, mouth and throat: no nasal congestion, no nasal discharge, no sinus pressure, blurry vision, diplopia Neck: No neck pain or rigidity. Cardiovascular: No palpitations, chest pain Respiratory: No shortness of breath, cough Gastrointestinal: No hematochezia Genitourinary : no dysuria, frequency Musculoskeletal: no muscle ache , joint pain Integumentary: no rash, no pruritis Neurological: no parathesias, focal weakness Endocrine: no cold or heat intolerance, no polyuria or polydipsia Hematologic/Lymphatic: no easy bruising, no easy bleeding, no gland swelling Allergic/Immunologic: no urticaria, no angioedema. PAST MEDICAL HISTORY: schizophrenia,depression chronic neck pain PAST SURGICAL HISTORY: Cholecystectomy, right foot SOCIAL HISTORY: Denies alcohol, tobacco, drugs FAMILY HISTORY: Hypertension Medications and Allergies Allergies Allergy/AdvReac Type Severity Reaction Status Date / Time No Known Allergies Allergy Verified 10/22/19 12:35 Home Medications Medication Instructions Recorded Confirmed Last Taken Type methOCARBAMOL [Robaxin TAB] 500 mg PO Q6H PRN #15 tablet 06/17/17 Unknown Rx Ibuprofen [Motrin] 800 mg PO Q8HR PRN #25 tablet 06/24/17 Unknown Rx methOCARBAMOL [Robaxin TAB] 500 mg PO Q6H PRN #15 tablet 06/24/17 Unknown Rx Cyclobenzaprine [Flexeril] 10 mg PO TID PRN #15 tablet 07/07/17 Unknown Rx Ibuprofen [Motrin 600 MG tab] 600 mg PO Q8H PRN #15 tablet 07/07/17 Unknown Rx Exam - Physical Exam Narrative exam: Gen. appearance: Patient lying in bed, no apparent distress HEENT: Normocephalic, atraumatic, pupils equally round and reactive to light, extraocular movement intact, and no sclericterus,. No JVD or thyromegaly or nodule,neck supple, no carotid bruit ,mucous membranes moist, no exudate or erythema Heart: S1, S2, regular rate and rhythm Lungs: Clear bilaterally, breathing comfortable Abdomen: Positive bowel sounds, nontender, nondistended, no organomegaly Extremity: no edema, cyanosis, clubbing Skin: No rash, nodules, warm, dry Neuro: Cranial nerves II to XII intact speech is fluent, moves extremities, sensory intact - Constitutional Vitals: Temp Pulse Resp BP Pulse Ox 99.1 F 65 18 114/60 99 03/30/20 01:02 03/30/20 03:23 03/30/20 03:23 03/30/20 03:23 03/30/20 03:23 HEART Score - HEART Score Troponin: Troponin T < 0.010 ng/mL (0.00-0.029) 03/30/20 01:21 Results - Labs CBC & Chem 7: 03/30/20 01:21 03/30/20 01:21 Labs: Abnormal lab results 03/30/20 03/30/20 Range/Units 01:21 01:21 Lymph % (Auto) 45.6 H (13.4-35.0) % Carbon Dioxide 31 H (22-30) mmol/L Creatinine 0.6 L (0.7-1.2) mg/dL Glucose 116 H (65-100) mg/dL - Imaging and Cardiology EKG: image reviewed Chest x-ray: report reviewed Assessment and Plan Assessment Chest pain Check cardiac enzymes, consult cardiology No stress test available today IV morphine, aspirin, DVT prophylaxis
--- NOTE | 2020-03-30 07:43 | Event Note ---
Date: 03/30/20 50-year-old female with a history of schizophrenia and depression and chronic neck pain presents with a chief complaint of sharp epigastric pain nonradiating not associated nausea vomiting no diaphoresis nonexertional admitted for chest pain evaluation for myocardial infarction. Initial cardiac enzymes unremarkable EKG unremarkable. Patient here for stress test echocardiogram further evaluation.
[2020-03-30] MEDS ORDERED: ENOXAPARIN 30 MG/0.3 ML INJ SUB-Q SCH (10:00)
--- NOTE | 2020-03-30 10:39 | Consultation ---
REFERRING PHYSICIAN: Dr. Kyle Arteaga. REASON FOR CONSULTATION: Advice and opinion regarding chest pain. HISTORY OF PRESENT ILLNESS: The patient is a 50-year-old female with history of schizophrenia, depression, chronic neck pain, who presents to Emergency Room with epigastric pain and chest pain on and off. She denies any syncope or presyncope. No diaphoresis, no nausea or vomiting. She states that she is seen on telemetry. States that she is feeling better, still has occasional chest pain. No family history of premature heart disease. She states she is a lifetime nonsmoker and nondrinker. No illicit drug use. Feeling better now. No family history of premature heart disease. MEDICATIONS: Inpatient and outpatient medications reviewed. ALLERGIES: No known drug, food, or environmental allergies. PHYSICAL EXAMINATION: VITAL SIGNS: Blood pressure is 114/60. She is afebrile. Tele reveals sinus rhythm in the 60s. No dysrhythmias or pauses. HEENT: Sclerae are anicteric. NECK: Supple, no masses, no JVD. CHEST: Clear to auscultation bilaterally. Good air movement. CARDIOVASCULAR: Regular rhythm, S1, S2. ABDOMEN: Soft, nontender, nondistended. Normoactive bowel sounds in 4 quadrants. No mass or bruits. EXTREMITIES: No cyanosis, clubbing, edema. Good peripheral pulses. SKIN: Warm, dry and intact. No rashes. LABORATORY DATA: EKG is nonacute. Cardiac enzymes negative x 2. CBC and BMP are otherwise unremarkable. Chest x-ray in the Emergency Room revealed no acute cardiopulmonary process. ASSESSMENT: In summary, the patient is a 50-year-old female: 1. Chest pain with typical and atypical features. Cardiac enzymes negative x 2. EKG is nonacute. 2. Depression. 3. Schizophrenia. PLAN: At this point, we will initiate cardiac workup with stress test, echocardiogram; however, further plan contingent on these results. Primary secondary prevention measures discussed. Thank you for this consultation. I will follow along with you. JOB# [id number] SBM/NTS
[2020-03-30] MEDS: ENOXAPARIN 40 MG/0.4 ML INJ SUB-Q SCH (11:16)
[2020-03-30] MEDS: ASPIRIN 81 MG TAB CHEW PO SCH (11:17)
[2020-03-31] MEDS ORDERED: REGADENOSON 0.4 MG/5 ML INJ IV ONE ×2 (08:06→08:15)
[2020-03-31] MEDS: ASPIRIN 81 MG TAB CHEW PO SCH (10:34)
[2020-03-31] MEDS: ENOXAPARIN 40 MG/0.4 ML INJ SUB-Q SCH (10:34)
--- NOTE | 2020-03-31 10:46 | Treadmill Report ---
NUCLEAR PERFUSION SCAN REFERRING PHYSICIAN: Kyle Arteaga MD PROTOCOL: The patient was brought to the stress lab in a postoperative state, given 10 mCi of technetium 99m at rest. The patient underwent rest imaging. The patient underwent Lexiscan stress test. At peak stress, patient was given 26 mCi of technetium 99m. Shortly thereafter, the patient underwent stress imaging. Raw imaging reveals mild GI artifact. No significant motion artifact. SPECT images examined carefully horizontal long axis, vertical long axis, short axis views. There is normal mitral uptake of radioisotope in all reported segments. No evidence of significant fixed or reversible perfusion defects suggestive of prior infarction or ischemia. Gated wall motion reveals normal systolic thickening, calculated ejection fraction of 57%, no TID. CONCLUSIONS: 1. Normal myocardial perfusion scan without evidence of active ischemia or prior infarction. 2. Normal left ventricular systolic performance without evidence of transient ischemic dilatation or stress-induced segmental wall motion abnormalities. JOB# [id number] SBM/NTS
--- NOTE | 2020-03-31 11:44 | Progress Note ---
Assessment and Plan clinically stable no further sxs stress thallium/tte/tele unremarkable aggressive primary and secondary prevention measures d/w pt - Patient Problems (1) Chest pain Current Visit: Yes Status: Acute Subjective Date of service: 03/31/20 Interval history: no cp or any sxs overnight Objective Vital Signs Temp Pulse Resp BP Pulse Ox 03/31/20 09:37 118/46 03/31/20 09:35 113/48 03/31/20 09:34 106/57 03/31/20 09:32 102/51 03/31/20 09:31 111/56 03/31/20 09:30 106/45 03/31/20 09:29 107/47 03/31/20 09:20 109/57 03/31/20 07:52 97.8 F 65 16 118/53 97 03/31/20 04:48 98.3 F 64 20 110/62 96 03/30/20 23:38 99.8 F H 69 20 118/54 95 03/30/20 20:07 98.1 F 69 20 98/47 96 03/30/20 18:05 80 - Imaging and Cardiology EKG: image reviewed
--- NOTE | 2020-03-31 13:40 | Discharge Summary ---
Providers - Providers Date of Admission: 03/30/20 05:20 Date of discharge: 03/31/20 Attending physician: ARLEY MCLAUGHLIN 03/30/20 03:47 Consult to Physician [CONS] Routine Comment: Consulting Provider: MARY KLEIN Physician Instructions: Reason For Exam: cp Primary care physician: [employer]ER Hospitalization Condition: Good Hospital course: Patient 50-year-old presented with chronic neck and back pain. Presented with atypical chest pain. Cardiac work-up negative normal stress test unremarkable echocardiogram unremarkable EKG enzymes cardiac enzymes also unremarkable. Patient remains chest pain-free most likely came from referred back pain neck pain. Patient admitted to the area was hurting. Treat with continue chronic pain meds Disposition: DC- TO HOME OR SELFCARE - Discharge Diagnoses (1) Chest pain Status: Acute Core Measure Documentation - Palliative Care Palliative Care/ Comfort Measures: Not Applicable - Core Measures Any of the following diagnoses?: none Exam - Constitutional Vitals: Temp Pulse Resp BP Pulse Ox 98.2 F 81 16 113/60 97 03/31/20 11:45 03/31/20 11:45 03/31/20 11:45 03/31/20 11:45 03/31/20 11:45 General appearance: Present: no acute distress, well-nourished - EENT Eyes: Present: PERRL ENT: hearing intact, clear oral mucosa - Neck Neck: Present: supple, normal ROM - Respiratory Respiratory effort: normal Respiratory: bilateral: CTA - Cardiovascular Heart Sounds: Present: S1 & S2. Absent: rub, click - Extremities Extremities: pulses symmetrical, No edema Peripheral Pulses: within normal limits - Abdominal General gastrointestinal: Present: soft, non-tender, non-distended, normal bowel sounds Female genitourinary: Present: normal - Integumentary Integumentary: Present: clear, warm, dry - Musculoskeletal Musculoskeletal: gait normal, strength equal bilaterally - Psychiatric Psychiatric: appropriate mood/affect, intact judgment & insight - Neurologic Neurologic: CNII-XII intact, moves all extremities Plan Activity: no restrictions Diet: regular Follow up with: PRIMARY CARE, [Primary Care Provider] - 3-5 Days Prescriptions: Ibuprofen [Motrin 600 MG tab] 600 mg PO Q8H PRN #15 tablet PRN Reason: Pain
[2020-03-31 16:18] VITALS: BP 121/40
== END 2020-03-31 17:25 | disposition home or self-care (01) ==
LOC: ED 00:32 → INTOOBSV 05:20 → 4A 05:20
PROVIDERS: ADMIT Internal Medicine; ATTEND Internal Medicine
DX: R07.89 Other chest pain (principal); F32.9 Major depressive disorder, single episode, unspecified; G89.29 Other chronic pain; M54.2 Cervicalgia; F20.9 Schizophrenia, unspecified; Z87.891 Personal history of nicotine dependence; Z90.49 Acquired absence of other specified parts of digestive tract; Z79.899 Other long term (current) drug therapy
CPT/HCPCS: 36415; 71045; 78452; 80048; 84484; 84703; 85025; 93005; 93017; 93306; 96372; 96374; 96375; 99285; A9502; G0378; J1650; J2405; J2785; J3010

== ENCOUNTER 2020-11-13 12:36 | Emergency (ER) | payer MEDICARE ==
[2020-11-13] MEDS ORDERED: SODIUM CHLORIDE 0.9% 1000 ML 1,000 ML IV ONE ×3 (12:55→17:42)
--- NOTE | 2020-11-13 13:05 | Emergency Department Report ---
HPI - HPI HPI: This is a 50-year-old female who presents to the emergency department, via EMS from home, after she passed out after using the bathroom. Patient says that she felt fine prior to this incident. She finished having a bowel movement and stood up and then passed out. She has no complaints of any headache, chest pain, shortness of breath, fever, or any injury after this syncopal episode. She presents hypotensive with a blood pressure of 85/34. Her Accu-Chek with EMS was 118. She did not take anything or receive anything for her symptoms prior to presentation. Patient has a history of depression and schizophrenia. No recent travel or sick contacts at home. <TRINO LÓPEZ - Last Filed: 11/13/20 16:00> <MARS RYAN - Last Filed: 11/13/20 22:53> - General Chief Complaint: Syncope Time Seen by Provider: 11/13/20 12:55 ED Past Medical Hx - Past Medical History Previous Medical History?: Yes Hx Congestive Heart Failure: No Hx Diabetes: No Hx Psychiatric Treatment: Yes (schizophrenia , DEPRESSION) Hx Asthma: No Hx COPD: No Additional medical history: chronic neck pain - Surgical History Hx Cholecystectomy: Yes Additional Surgical History: Chronic Neck Pain - Social History Smoking Status: Former Smoker Substance Use Type: None <TRINO LÓPEZ - Last Filed: 11/13/20 16:00> <MARS RYAN - Last Filed: 11/13/20 22:53> - Medications Home Medications: Home Medications Medication Instructions Recorded Confirmed Last Taken Type methOCARBAMOL [Robaxin TAB] 500 mg PO Q6H PRN #15 tablet 06/17/17 Unknown Rx Acetaminophen [Acetaminophen TAB] 650 mg PO Q4H PRN tablet 03/31/20 Unknown Rx Aspirin [Aspirin BABY CHEW TAB] 81 mg PO QDAY tab.chew 03/31/20 Unknown Rx Ibuprofen [Motrin 600 MG tab] 600 mg PO Q8H PRN #15 tablet 03/31/20 Unknown Rx ED Review of Systems ROS: Stated complaint: SYNCOPE EPISODE Other details as noted in HPI Comment: All other systems reviewed and negative Constitutional: denies: chills, fever Eyes: denies: eye pain, vision change ENT: denies: ear pain, throat pain Respiratory: denies: cough, shortness of breath Cardiovascular: syncope. denies: chest pain Gastrointestinal: denies: abdominal pain, vomiting Genitourinary: denies: dysuria, discharge Musculoskeletal: denies: back pain, arthralgia Skin: denies: rash, lesions Neurological: denies: headache, weakness <TRINO LÓPEZ S - Last Filed: 11/13/20 16:00> ROS: Stated complaint: SYNCOPE EPISODE Other details as noted in HPI <RYANMARS Paxton - Last Filed: 11/13/20 22:53> Physical Exam - Physical Exam Vital Signs: Vital Signs 11/13/20 12:47 Temperature 97.7 F Pulse Rate 51 L Respiratory 13 Rate Blood Pressure 85/34 O2 Sat by Pulse 96 Oximetry Physical Exam: GENERAL: The patient is well-developed well-nourished. HENT: Normocephalic. Atraumatic. Patient has moist mucous membranes. EYES: Extraocular motions are intact. No nystagmus. NECK: Supple. Trachea is midline. CHEST/LUNGS: Clear to auscultation. There is no respiratory distress noted. HEART/CARDIOVASCULAR: Regular. There is no tachycardia. There is no murmur. ABDOMEN: Abdomen is soft, nontender. Patient has normal bowel sounds. SKIN: Skin is warm and dry. NEURO: The patient is awake, alert, and oriented. The patient is cooperative. The patient has no focal neurologic deficits. Normal speech. Cranial nerves II through XII grossly intact. No pronator drift or dysmetria. MUSCULOSKELETAL: There is no tenderness or deformity. There is no limitation range of motion. <TRINO LÓPEZ S - Last Filed: 11/13/20 16:00> - Physical Exam Vital Signs: Vital Signs 11/13/20 11/13/20 11/13/20 12:42 12:46 12:47 Temperature 97.7 F Pulse Rate 48 L 51 L Respiratory 24 13 Rate Blood Pressure 85/34 O2 Sat by Pulse 96 96 96 Oximetry 11/13/20 11/13/20 11/13/20 13:00 13:30 15:20 Temperature Pulse Rate 49 L 47 L Respiratory 26 H 14 Rate Blood Pressure 85/34 89/40 53/19 O2 Sat by Pulse 97 97 Oximetry 11/13/20 11/13/20 11/13/20 15:30 16:00 16:30 Temperature Pulse Rate 55 L 56 L 52 L Respiratory 24 17 16 Rate Blood Pressure 86/38 89/41 88/48 O2 Sat by Pulse 95 94 97 Oximetry <MARS RYAN - Last Filed: 11/13/20 22:53> ED Course Vital Signs 11/13/20 12:47 Temperature 97.7 F Pulse Rate 51 L Respiratory 13 Rate Blood Pressure 85/34 O2 Sat by Pulse 96 Oximetry <TRINO LÓPEZ S - Last Filed: 11/13/20 16:00> Vital Signs 11/13/20 11/13/20 11/13/20 12:42 12:46 12:47 Temperature 97.7 F Pulse Rate 48 L 51 L Respiratory 24 13 Rate Blood Pressure 85/34 O2 Sat by Pulse 96 96 96 Oximetry 11/13/20 11/13/20 11/13/20 13:00 13:30 15:20 Temperature Pulse Rate 49 L 47 L Respiratory 26 H 14 Rate Blood Pressure 85/34 89/40 53/19 O2 Sat by Pulse 97 97 Oximetry 11/13/20 11/13/20 11/13/20 15:30 16:00 16:30 Temperature Pulse Rate 55 L 56 L 52 L Respiratory 24 17 16 Rate Blood Pressure 86/38 89/41 88/48 O2 Sat by Pulse 95 94 97 Oximetry - Reevaluation(s) Reevaluation #1: 11/13/20 17:44 After 2 L of IV fluids blood pressure has improved to 97/26 and heart rate is currently in the 66-67 range. I reinterviewed patient. She states she is feeling better. She states she felt lightheaded prior to passing out without any pain. She admits to poor food and liquid intake the last several days because although she has money she does not have transportation to go to the store to obtain food. She ate food while she was here. I will provide an additional liter of normal saline and reassess to determine appropriate discharge <MARS RYAN - Last Filed: 11/13/20 22:53> ED Medical Decision Making - Lab Data Result diagrams: 11/13/20 13:13 11/13/20 13:13 - EKG Data -: EKG Interpreted by Me EKG shows normal: sinus rhythm, axis, intervals, QRS complexes, ST-T waves Rate: bradycardia (47 bpm) - EKG Data When compared to previous EKG there are: previous EKG unavailable Interpretation: other (Sinus bradycardia 47 bpm. Normal axis, slightly prolonged QT. No ST elevation DC.) - Radiology Data Radiology results: report reviewed CT head/brain wo con INDICATION / CLINICAL INFORMATION: 50 years Female; Syncope. TECHNIQUE: Routine CT head without contrast. All CT scans at this [facility] ation are performed using CT dose reduction for ALARA by means of automated exposure control. COMPARISON: None. FINDINGS: BRAIN / INTRACRANIAL CONTENTS: There is a soft tissue lesion in the left cavernous sinus region which may extend into the left sphenoid sinus. Meningioma in this region might be a consideration. This finding is not of acute significance. However, pre and postcontrast MRI with special attention to the region of the sella turcica, would be of benefit. Otherwise, no acute hemorrhage, mass effect, midline shift, hydrocephalus, or acute, large territorial infarct. Mild, diffuse cerebral atrophy suggested given the patient's age. No significant white matter abnormality seen. CRANIOCERVICAL JUNCTION: No significant abnormality. ORBITS: No significant abnormality of visualized orbits. SINUSES / MASTOIDS: Mild mucosal thickening seen in the ethmoids. ADDITIONAL FINDINGS: None. IMPRESSION: 1. No focal intra-axial mass, hemorrhage, hydrocephalus, or acute, large territorial infarct. 2. Left cavernous sinus lesion suspected, as described above. Dedicated pre and postcontrast MRI of the brain with special attention to the sella turcica region, would be of benefit. - Medical Decision Making This patient presents to the emergency department after having a syncopal episode after having a bowel movement prior to presentation. Since being in the emergency department she has been awake, alert, oriented and in no acute distress. The patient does present with some mild hypotension with a blood pressure of 85/34. IV fluid resuscitation has been started. EKG shows sinus bradycardia but otherwise no significant dysrhythmia and no morphology consistent with ST elevation myocardial infarction. CT scan of the head without contrast does not show any acute process but radiology did read that there is a left cavernous sinus lesion, that could be a meningioma, but otherwise does not have any acute significance and there is no acute bleed, shift, mass, hemorrhage or edema. The patient's labs have been unremarkable thus far including CBC, metabolic panel, thyroid level, negative TSH. A D-dimer level has been ordered to rule out a PE. The patient is receiving 2 L of IV fluid resuscitation. The patient will be followed by my colleague, Dr. Ryan and she will assist with appropriate disposition. <TRINO LÓPEZ S - Last Filed: 11/13/20 16:00> - Lab Data Result diagrams: 11/13/20 13:13 11/13/20 13:13 - Medical Decision Making Patient's labs unremarkable. Patient received 3 L of normal saline with improvement in blood pressure. Orthostatics performed the patient as she had a improved blood pressure with standing and denies feeling lightheaded. She did reports decreased p.o. intake secondary to decreased access to food. During her ED stay she was provided meals and coffee and was not exhibiting any symptoms. Urine also checked and is unremarkable. <MARS RYAN - Last Filed: 11/13/20 22:53> Critical Care Time: No Critical care attestation.: If time is entered above; I have spent that time in minutes in the direct care of this critically ill patient, excluding procedure time. <TRINO LÓPEZ - Last Filed: 11/13/20 16:00> Critical care attestation.: If time is entered above; I have spent that time in minutes in the direct care of this critically ill patient, excluding procedure time. <MARS RYAN - Last Filed: 11/13/20 22:53> ED Disposition Is pt being admited?: No <TRINO LÓPEZ - Last Filed: 11/13/20 16:00> Is pt being admited?: No Time of Disposition: 22:30 <MARS RYAN - Last Filed: 11/13/20 22:53> Clinical Impression: Syncope, Hypotension Disposition: - TO HOME OR SELFCARE Condition: Stable Instructions: Hypotension, Syncope, Syncope (ED) Additional Instructions: Follow-up with your doctor or doctor/clinic provided. Return if symptoms worsen as indicated by your discharge instructions. Referrals: TIKA ABRAMS MD [Primary Care Provider] - 2-3 Days LIANNA LALA MD [Staff Physician] - 2-3 Days [facility] [Provider Group] - 2-3 Days
--- NOTE | 2020-11-13 14:23 | Cat Scan Report ---
CT head/brain wo con INDICATION / CLINICAL INFORMATION: 50 years Female; Syncope. TECHNIQUE: Routine CT head without contrast. All CT scans at this location are performed using CT dos e reduction for ALARA by means of automated exposure control. COMPARISON: None. FINDINGS: BRAIN / INTRACRANIAL CONTENTS: There is a soft tissue lesion in the left cavernous sinus region which may extend into the left sphenoid sinus. Meningioma in this region might be a consideration. This fi nding is not of acute significance. However, pre and postcontrast MRI with special attention to the r egion of the sella turcica, would be of benefit. Otherwise, no acute hemorrhage, mass effect, midline shift, hydrocephalus, or acute, large territori al infarct. Mild, diffuse cerebral atrophy suggested given the patient's age. No significant white matter abnormality seen. CRANIOCERVICAL JUNCTION: No significant abnormality. ORBITS: No significant abnormality of visualized orbits. SINUSES / MASTOIDS: Mild mucosal thickening seen in the ethmoids. ADDITIONAL FINDINGS: None. IMPRESSION: 1. No focal intra-axial mass, hemorrhage, hydrocephalus, or acute, large territorial infarct. 2. Left cavernous sinus lesion suspected, as described above. Dedicated pre and postcontrast MRI of t he brain with special attention to the sella turcica region, would be of benefit. Signer Name: Mannie Jeffery MD, III Signed: 11/13/2020 2:19 PM Workstation Name: [id number]
[2020-11-13 14:48] LABS: Alanine Aminotransferase 11 units/L (7-56); Blood Urea Nitrogen 6 mg/dL (7-17); Calcium 9.2 mg/dL (8.4-10.2); Hemolysis Index 53
[2020-11-13 15:10] LABS: Hematocrit 46.3 % (30.3-42.9); Mean Corpuscular HGB Conc 35 % (30-34); Mean Corpuscular Volume 97 fl (79-97); Red Blood Count 4.78 M/mm3 (3.65-5.03); Red Cell Distribution Width 13.2 % (13.2-15.2)
[2020-11-13 15:12] LABS: BUN/Creatinine Ratio 9
[2020-11-13 16:18] LABS: Platelet Count 183 K/mm3 (140-440)
[2020-11-13] MEDS ORDERED: ATROPINE 1 MG/ML VIAL IV ONE (17:41)
[2020-11-13 19:27] LABS: Total Cells Counted 100
[2020-11-13 19:28] LABS: Ovalocytes Rare; Platelet Estimate Consistent w Auto
[2020-11-13 21:55] LABS: Amphetamine Screen,Urine PRESUMPTIVE NEGATIVE; Benzodiazepines Screen,Urine PRESUMPTIVE NEGATIVE; Cannabinoid Screen,Urine PRESUMPTIVE NEGATIVE; Cocaine Screen,Urine PRESUMPTIVE NEGATIVE; Methadone Screen,Urine PRESUMPTIVE NEGATIVE; Opiate Screen,Urine PRESUMPTIVE NEGATIVE
[2020-11-13 22:01] LABS: Bacteria,Urine 1+ /HPF (Negative); Bilirubin,Urine NEG (Negative); Blood,Urine MOD (Negative); Color,Urine Yellow (Yellow); Protein,Urine <15 mg/dL mg/dL (Negative); Urobilinogen,Urine < 2.0 mg/dL (<2.0); WBC,Urine < 1.0 /HPF (0.0-6.0)
[2020-11-13 23:03] VITALS: BP 95/66
== END 2020-11-13 23:20 | disposition home or self-care (01) ==
LOC: ED 12:36
DX: R55 Syncope and collapse (principal); I95.9 Hypotension, unspecified; F20.9 Schizophrenia, unspecified; F32.9 Major depressive disorder, single episode, unspecified; Z87.891 Personal history of nicotine dependence; Z79.1 Long term (current) use of non-steroidal anti-inflammatories (NSAID); Z79.899 Other long term (current) drug therapy
CPT/HCPCS: 36415; 70450; 80053; 80307; 81001; 84443; 84484; 84703; 85007; 85025; 85379; 93005; 96360; 96361; 99284; J7030

== ENCOUNTER 2021-05-07 14:24 | Emergency (ER) | payer MEDICARE ==
[2021-05-07 15:09] VITALS: BP 105/53
[2021-05-07 16:40] LABS: Basophils # (Auto) 0.1 K/mm3 (0.0-0.1); Basophils % (Auto) 0.6 % (0.0-1.8); Eosinophils % (Auto) 0.4 % (0.0-4.3); Hematocrit 38.3 % (30.3-42.9); Hemoglobin 13.4 gm/dl (10.1-14.3); Lymphocytes # (Auto) 1.5 K/mm3 (1.2-5.4); Lymphocytes % (Auto) 16.4 % (13.4-35.0); Mean Corpuscular HGB Conc 35 % (30-34); Mean Corpuscular Volume 97 fl (79-97); Monocytes # (Auto) 0.6 K/mm3 (0.0-0.8); Monocytes % (Auto) 6.3 % (0.0-7.3); Platelet Count 149 K/mm3 (140-440); Red Blood Count 3.95 M/mm3 (3.65-5.03); Red Cell Distribution Width 14.2 % (13.2-15.2)
[2021-05-07 17:10] LABS: Alanine Aminotransferase 10 units/L (7-56); Albumin 4.2 g/dL (3.9-5); Blood Urea Nitrogen 7 mg/dL (7-17); Calcium 8.8 mg/dL (8.4-10.2); Hemolysis Index 3
[2021-05-07 17:11] LABS: BUN/Creatinine Ratio 12
--- NOTE | 2021-05-07 18:13 | Emergency Department Report ---
ED General Adult HPI - General Chief complaint: Dizziness Stated complaint: DEHYDRATION Time Seen by Provider: 05/07/21 18:11 Source: patient Mode of arrival: Ambulatory Limitations: No Limitations - History of Present Illness Initial comments: 51-year-old female patient presents to the emergency department via EMS with complaints of generalized weakness earlier today, currently resolved. Patient states she was at the store when she began to feel weak. Patient sat on the floor in case she passed out. Patient did not lose consciousness. Patient was transported to the hospital by EMS. She was administered 1 L of IV fluids en route to the emergency department and states she feels much better. Prior to the onset of her symptoms today, patient ate [employer] and subsequently developed diarrhea, which has also now resolved. No recent fall, trauma, injury. No history of hypertension, hyperlipidemia, diabetes. No history of prior stroke or LA. No family history of sudden cardiac . Denies headache, neck stiffness, dizziness, shortness of breath, chest pain, palpitations, seizure, syncope, paresthesias, vomiting. Denies all other c omplaints at this time. - Related Data Previous Rx's Medication Instructions Recorded Last Taken Type methOCARBAMOL [Robaxin TAB] 500 mg PO Q6H PRN #15 tablet 06/17/17 Unknown Rx Acetaminophen [Acetaminophen TAB] 650 mg PO Q4H PRN tablet 03/31/20 Unknown Rx Aspirin [Aspirin BABY CHEW TAB] 81 mg PO QDAY tab.chew 03/31/20 Unknown Rx Ibuprofen [Motrin 600 MG tab] 600 mg PO Q8H PRN #15 tablet 03/31/20 Unknown Rx Allergies Allergy/AdvReac Type Severity Reaction Status Date / Time No Known Allergies Allergy Verified 10/22/19 12:35 ED Review of Systems ROS: Stated complaint: DEHYDRATION Other details as noted in HPI Other: GENERAL: Positive for generalized weakness. ENT: Negative for ear pain, difficulty hearing, sore throat, nasal congestion, epistaxis. CARDIOVASCULAR: Negative for chest pain, palpitations, lower extremity swelling. PULMONARY: Negative for cough, dyspnea, wheezing, orthopnea, cyanosis. GASTROINTESTINAL: Positive for diarrhea. MUSCULOSKELETAL: Negative for joint pain, joint swelling, myalgias, back pain, neck pain. NEUROLOGICAL: Negative for headache, seizure, syncope, paresthesias, weakness. INTEGUMENTARY: Negative for erythema, rash, diaphoresis, laceration, ecchymosis. HEMATOLOGICAL: Negative for hemoptysis, hematemesis, hematochezia, hematuria. PSYCHIATRIC: Negative for hallucinations, suicidal ideation, homicidal ideation, anxiety, depression. ED Past Medical Hx - Past Medical History Previous Medical History?: Yes Hx Congestive Heart Failure: No Hx Diabetes: No Hx Psychiatric Treatment: Yes (schizophrenia , DEPRESSION) Hx Asthma: No Hx COPD: No Additional medical history: chronic neck pain - Surgical History Hx Cholecystectomy: Yes Additional Surgical History: Chronic Neck Pain - Social History Smoking Status: Former Smoker Substance Use Type: None - Medications Home Medications: Home Medications Medication Instructions Recorded Confirmed Last Taken Type methOCARBAMOL [Robaxin TAB] 500 mg PO Q6H PRN #15 tablet 06/17/17 Unknown Rx Acetaminophen [Acetaminophen TAB] 650 mg PO Q4H PRN tablet 03/31/20 Unknown Rx Aspirin [Aspirin BABY CHEW TAB] 81 mg PO QDAY tab.chew 03/31/20 Unknown Rx Ibuprofen [Motrin 600 MG tab] 600 mg PO Q8H PRN #15 tablet 03/31/20 Unknown Rx ED Physical Exam - General Limitations: No Limitations - Other Other exam information: General: Awake and alert. No acute distress. Eating crackers and drinking Coca- Cola. Head: Atraumatic, normocephalic. Eyes: EOMI. Pupils are equal and round. Normal sclera and conjunctiva. ENT: Oral mucosa is moist. Normal pharyngeal exam. Neck: Supple. No lymphadenopathy. Pulmonary: No respiratory distress. Clear to auscultation bilaterally. Cardiac: Regular rate and rhythm. Pulses are palpable and equal bilaterally. No lower extremity cyanosis or edema. Skin: Warm and dry. No rashes. Abdomen: Soft, non-tender, non-protuberant. No guarding, rigidity, or rebound. Bowel sounds are normal. No organomegaly or masses noted. Back: Normal alignment. No CVA tenderness. Extremities: Symmetrical. Full range of motion intact. Neurological: Alert and oriented, appropriately interactive, no focal deficits. Psych: Cooperative. Appropriate mood and affect. Speech is evenly metered. Thoughts are logically construed. ED Course Vital Signs 05/07/21 15:08 Temperature 98.3 F Pulse Rate 79 Respiratory 18 Rate Blood Pressure 105/53 O2 Sat by Pulse 100 Oximetry ED Medical Decision Making - Lab Data Result diagrams: 05/07/21 16:08 05/07/21 16:08 - EKG Data 05/07/21 18:12 EKG shows normal sinus rhythm with a ventricular rate of 64 bpm. Normal axis. Normal SD interval. Normal QT interval. Good R wave progression. No ST segment changes. Over read by attending emergency physician, who agrees with this interpretation. - Medical Decision Making Differential diagnosis including but not limited to: cardiac arrhythmia, dehydration, electrolyte abnormality, anemia, hypoglycemia On reevaluation, patient is stable. She is afebrile, vital signs are within normal limits. She is sitting upright drinking Coca-Cola and eating crackers. She is very talkative and states she feels much better after receiving IV fluid from EMS en route to the emergency department. EKG without acute injury pattern. Labs are unremarkable. She is ambulatory without assistance. She is tolerating oral intake without any difficulty. Neurological exam is nonfocal. There is no clinical indication for further diagnostic work-up on an emergent basis at this time. Patient will be discharged home to follow-up with primary care provider on an outpatient basis. Patient expressed understanding and is agreeable to plan of care. Emphasized importance of remaining well-hydrated. Strict return precautions provided. Repeat exam is unremarkable and benign. History, exam, diagnostic testing, and current condition do not suggest worrisome pathology to warrant further testing, continued ED treatment, admission, or surgical evaluation at this point. Given the low probability of a significant medical illness, it would be more likely to result in harm than benefit to perform further testing at this stage. Discussed findings, presumptive diagnosis, need for follow-up and specific signs/symptoms that should prompt immediate return to the emergency department. Instructions were explained in detail to the patient in addition to giving written discharge information. Patient expressed understanding and was given the opportunity to a sk questions, all of which were satisfactorily answered prior to discharge home. Critical care attestation.: If time is entered above; I have spent that time in minutes in the direct care of this critically ill patient, excluding procedure time. ED Disposition Clinical Impression: Generalized weakness Disposition: DC-01 TO HOME OR SELFCARE Is pt being admited?: No Does the pt Need Aspirin: No Condition: Stable Additional Instructions: Maintain a well-balanced, healthy diet. Rest. Drink plenty of fluids. Follow-up with your primary care provider this week. Call tomorrow to schedule an appointment. Return to the emergency department immediately for new or worsening symptoms. Specifically, return to the emergency department immediately for fever, chest pain, difficulty breathing, loss of consciousness, vomiting, seizure, or any other concerns. Referrals: DELILAH HARRISON MD [Staff Physician] - 3-5 Days Time of Disposition: 18:24
--- NOTE | 2021-05-09 09:45 | Electrocardiograph Report ---
[facility] Test Date: 2021-05-07 Test Time: 15:13:39 Pat Name: AIXA KAISER Department: Room: Gender: F [employer]: COLTON : 1970 Requested By: OLIVIA AVELAR Order Number: [id number] Reading MD: Leno Zhou Measurements Intervals [place] Rate: 64 P: 50 CT: 151 QRS: 36 QRSD: 86 T: 32 QT: 415 QTc: 427 Interpretive Statements Sinus rhythm nonspecific st-t No previous ECG available for comparison Electronically Signed On 05-09-2021 9:45:19 EDT by Leno Zhou
== END 2021-05-07 19:06 | disposition home or self-care (01) ==
LOC: ED 14:24
DX: R53.1 Weakness (principal); F20.9 Schizophrenia, unspecified; F32.9 Major depressive disorder, single episode, unspecified; Z90.49 Acquired absence of other specified parts of digestive tract; Z98.890 Other specified postprocedural states; Z87.891 Personal history of nicotine dependence; Z79.1 Long term (current) use of non-steroidal anti-inflammatories (NSAID); Z79.899 Other long term (current) drug therapy
CPT/HCPCS: 36415; 80053; 84484; 85025; 93005